=== PATIENT | female | born 1990 | race Caucasian/White ===

== ENCOUNTER 2020-02-19 12:52 | Emergency (ER) | payer BC, SELFPAY ==
[2020-02-19 12:58] VITALS: BP 123/78; PULSE 102; RESP 18; TEMP 36.8; O2SAT 99
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
[2020-02-19] MEDS: oxyCODONE 5 mg/Acetaminophen 325 mg TAB 1 TAB PO (14:02)
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
== END 2020-02-19 14:36 | disposition home or self-care (01) ==
PROVIDERS: Emergency Provider Physician Assistant
DX: S42.001A Fracture of unspecified part of right clavicle, initial encounter for closed fracture (principal); V18.0XXA Pedal cycle driver injured in noncollision transport accident in nontraffic accident, initial encounter
CPT/HCPCS: 99284; 71046; 73030; L3650